=== PATIENT | female | born 1945 | race Caucasian/White ===

== ENCOUNTER → 2017-11-25 | Outpatient (CLI) | payer MEDICARE, OTHER | END | disposition home or self-care (01) | LOC: EKG 10:35 | DX: Z01.818 Encounter for other preprocedural examination (principal); R05 Cough | CPT/HCPCS: 71046 ==

== ENCOUNTER 2017-12-02 09:16 | Day surgery (SDC) | payer MEDICARE, OTHER ==
[~2017-12-02 09:16] MED LIST: LIDOCAINE 2% (SDV) 5 ML INJ
[2017-12-02 10:37] LABS: ANION GAP 13 (8-16); CARBON DIOXIDE 22 mmol/L (21-31); CHLORIDE 111 mmol/L (97-110); GLUCOSE 127 mg/dl (70-220)
[2017-12-02 10:42] LABS: BLOOD UREA NITROGEN 10 mg/dl (7-20); CREATININE 0.48 mg/dl (0.44-1.00); POTASSIUM 4.1 mmol/L (3.5-5.1); SODIUM 142 mmol/L (135-144)
[2017-12-02] MEDS ORDERED: FENTAnyl 50 MCG/ML VIAL (11:28)
[2017-12-02] MEDS ORDERED: PROPOFOL 100 ML (11:29)
[2017-12-02] MEDS ORDERED: HYDROmorphONE (0.2 MG/ML) 10ML SYG IV ×2 (11:30)
[2017-12-02] MEDS ORDERED: LABETALOL HCL 20MG INJ IV (11:30)
[2017-12-02] MEDS ORDERED: KETOROLAC 30 MG INJ IV (11:30)
[2017-12-02] MEDS ORDERED: OXYCODONE/ACETAMINOPHEN (5/325) TAB PO ×2 (11:30)
[2017-12-02] MEDS ORDERED: ONDANSETRON 4 MG INJ IV (11:30)
[2017-12-02] MEDS ORDERED: ALBUTEROL 0.083% (NEB) 2.5 MG/3 ML AMP HHN (11:30)
[2017-12-02] MEDS ORDERED: DIPHENHYDRAMINE 50 MG INJ IV (11:30)
[2017-12-02] MEDS ORDERED: FENTAnyl 50 MCG/ML VIAL IV ×2 (11:30)
[2017-12-02] MEDS ORDERED: MEPERIDINE 25 MG INJ IV (11:30)
[2017-12-02] MEDS ORDERED: hydrALAzine 20 MG INJ IV (11:30)
[2017-12-02] MEDS ORDERED: EPHEDrine SULFATE 50 MG/5 ML SYG IV (11:30)
== END 2017-12-02 13:45 | disposition home or self-care (01) ==
LOC: GIL 09:16 → SDS 09:16 → GIL 13:45
DX: K29.30 Chronic superficial gastritis without bleeding (principal); K26.9 Duodenal ulcer, unspecified as acute or chronic, without hemorrhage or perforation; I10 Essential (primary) hypertension; E78.5 Hyperlipidemia, unspecified
CPT/HCPCS: 43239; 71045; 71046; 80048; 88305; 88312; 88313; 93005

== ENCOUNTER 2018-01-01 14:38 | Inpatient (IN) | payer MEDICARE, OTHER ==
[~2018-01-01 14:38] MED LIST changes: +ETOMIDATE 20 MG INJ; -LIDOCAINE 2% (SDV) 5 ML INJ; +SUCCINYLCHOLINE CHLORIDE 100 MG/5 ML SYG IV
[2018-01-01] MEDS: CEFTRIAXONE 1 GM/50 ML (PMX) 50 ML IVPB (15:15)
[2018-01-01 15:23] LABS: ADD MAN DIFF? NO
[2018-01-01] MEDS: NORepinephrine 8MG/250 ML (PMX 250 ML IV (15:27)
[2018-01-01 15:31] LABS: BASOPHILS % 0.2 % (0.0-2.0); EOSINOPHILS % 0.3 % (0.0-7.0); HEMATOCRIT 28.9 % (37.0-47.0); HEMOGLOBIN 9.8 g/dl (12.0-16.0); LYMPHOCYTES % 13.3 % (15.0-51.0); MEAN CORPUSCULAR HEMOGLOBIN 30.1 pg (29.0-33.0); MEAN CORPUSCULAR HGB CONC 33.9 g/dl (32.0-37.0); MEAN CORPUSCULAR VOLUME 88.7 fl (82.0-101.0); MEAN PLATELET VOLUME 11.9 fl (7.4-10.4); MONOCYTE # 0.9 10^3/ul (0.3-0.9); MONOCYTES % 6.3 % (0.0-11.0); NEUTROPHIL # 11.7 10^3/ul (1.6-7.5); NEUTROPHILS % 79.3 % (39.0-77.0); PLATELET COUNT 248 10^3/UL (140-415); RED BLOOD COUNT 3.26 10^6/ul (4.20-5.40); RED CELL DISTRIBUTION WIDTH 14.7 % (11.5-14.5)
[2018-01-01 15:31] LABS: WHITE BLOOD COUNT 14.7 10^3/ul (4.8-10.8)
[2018-01-01] MEDS: TRANEXAMIC ACID IVPB (15:36)
[2018-01-01] MEDS: DEXTROSE 5% IVPB (15:36)
[2018-01-01] MEDS: PANTOPRAZOLE IV 80 MG in SOD CHLORIDE 0.9% 100 ML IV ×2 (15:38→22:16)
[2018-01-01] MEDS: SOD CHLORIDE 0.9% 1,000 ML IV ×2 (15:38→18:53)
[2018-01-01 15:44] LABS: ALANINE AMINOTRANSFERASE 45 IU/L (13-69); ALBUMIN 2.7 g/dl (3.3-4.9); ALKALINE PHOSPHATASE 123 IU/L (42-121); ANION GAP 14 (8-16); ASPARTATE AMINO TRANSFERASE 38 IU/L (15-46); BILIRUBIN,INDIRECT 0.7 mg/dl (0-1.1); BILIRUBIN,TOTAL 0.7 mg/dl (0.2-1.3); BLOOD UREA NITROGEN 17 mg/dl (7-20); CALCIUM 8.6 mg/dl (8.4-10.2); CARBON DIOXIDE 20 mmol/L (21-31); CHLORIDE 109 mmol/L (97-110); GLUCOSE 166 mg/dl (70-220); LIPASE 301 U/L (23-300); POTASSIUM 3.9 mmol/L (3.5-5.1); SODIUM 139 mmol/L (135-144); TOTAL PROTEIN 5.7 g/dl (6.1-8.1)
[2018-01-01] MEDS ORDERED: ONDANSETRON 4 MG INJ (15:45)
[2018-01-01 15:46] LABS: INR 1.26; PARTIAL THROMBOPLASTIN TIME 32.1 Sec (25.0-35.0); PT RATIO 1.3
[2018-01-01] MEDS: PANTOPRAZOLE IV 80 MG in SOD CHLORIDE 0.9% 100 ML IVPB (15:52)
[2018-01-01] MEDS: OCTREOTIDE 50 MCG in SOD CHLORIDE 0.9% 25 ML IVPB (15:53)
[2018-01-01 15:56] LABS: TROPONIN-I < 0.012 ng/ml (0.000-0.120)
[2018-01-01] MEDS: OCTREOTIDE 500 MCG in SOD CHLORIDE 0.9% 49 ML IV (16:00)
[2018-01-01] MEDS: ETOMIDATE 20 MG INJ IV (16:03)
[2018-01-01] MEDS: SUCCINYLCHOLINE CHLORIDE 100 MG/5 ML SYG IV (16:03)
[2018-01-01] MEDS ORDERED: LORAZEPAM 2 MG INJ (16:05)
[2018-01-01] MEDS: LORAZEPAM 2 MG INJ IV (16:05)
[2018-01-01] MEDS ORDERED: MIDAZOLAM 1 MG/ML 2 ML INJ (16:07)
[2018-01-01] MEDS ORDERED: MIDAZOLAM (DRIP) 50 mg/50 mL 50 ML IV (16:18)
[2018-01-01] MEDS ORDERED: PROPOFOL 100 ML (16:54)
[2018-01-01] MEDS ORDERED: PROPOFOL 100 ML IV (17:00)
[2018-01-01] MEDS ORDERED: PHENYLephrine 20MG IN 250 ML 0 ML (17:38)
[2018-01-01] MEDS ORDERED: PHENYLephrine 40 MG in DEXTROSE 5% 496 ML IV (18:00)
[2018-01-01] MEDS: PANTOPRAZOLE 40 MG INJ IV (18:53)
[2018-01-01] MEDS: PROPOFOL 100 ML IV (18:53)
[2018-01-01 19:43] LABS: ADD MAN DIFF? NO; BASOPHILS % 0.2 % (0.0-2.0); HEMATOCRIT 24.7 % (37.0-47.0); HEMOGLOBIN 8.3 g/dl (12.0-16.0); LYMPHOCYTES % 5.6 % (15.0-51.0); MEAN CORPUSCULAR HEMOGLOBIN 30.3 pg (29.0-33.0); MEAN CORPUSCULAR HGB CONC 33.6 g/dl (32.0-37.0); MEAN CORPUSCULAR VOLUME 90.1 fl (82.0-101.0); MONOCYTE # 1.3 10^3/ul (0.3-0.9); MONOCYTES % 6.8 % (0.0-11.0); NEUTROPHILS % 86.3 % (39.0-77.0); PLATELET COUNT 293 10^3/UL (140-415); RED BLOOD COUNT 2.74 10^6/ul (4.20-5.40); RED CELL DISTRIBUTION WIDTH 14.8 % (11.5-14.5)
[2018-01-01 19:43] LABS: WHITE BLOOD COUNT 18.5 10^3/ul (4.8-10.8)
[2018-01-01] MEDS: METOCLOPRAMIDE 10 MG INJ IV (19:55)
[2018-01-01 20:06] LABS: ANION GAP 15 (8-16); BLOOD UREA NITROGEN 17 mg/dl (7-20); CALCIUM 7.8 mg/dl (8.4-10.2); CARBON DIOXIDE 18 mmol/L (21-31); CHLORIDE 109 mmol/L (97-110); CREATININE 0.89 mg/dl (0.44-1.00); GLUCOSE 173 mg/dl (70-220); POTASSIUM 3.9 mmol/L (3.5-5.1); SODIUM 138 mmol/L (135-144)
[2018-01-01] MEDS: PHENYLephrine 40 MG in DEXTROSE 5% 496 ML IV (20:09)
[2018-01-01 20:11] LABS: AADO2 Arterial 390.7 mmHg (7.0-24.0); Allen Test ACCEPTAB; Arterial Base Excess -10.2 mmol/L (-3.0-3); Arterial Blood Gas Oxygen Sat 98.4 mmHG (95.0-100.0); Arterial COHb 0.3 % (0.0-3.0); Arterial Fraction of Oxyhgb 97.8 % (93.0-99.0); Arterial HCO3 14.5 mmol/L (22.0-26.0); Arterial MetHb 0.3 % (0.0-1.5); Arterial Total Hemglobin 9.5 g/dl (12.0-18.0); Arterial pCO2 27.9 mmhg (35-45); MODE VENT - AC; Site Right Radial
[2018-01-02 00:05] LABS: AHG CROSSMATCH 1 9
[2018-01-02] MEDS: PROPOFOL 100 ML IV ×3 (00:30→23:08)
[2018-01-02] MEDS: METOCLOPRAMIDE 10 MG INJ IV ×6 (00:32→20:50)
[2018-01-02 04:59] LABS: ADD MAN DIFF? NO
[2018-01-02 05:06] LABS: BASOPHILS % 0.1 % (0.0-2.0); HEMATOCRIT 29.6 % (37.0-47.0); HEMOGLOBIN 10.1 g/dl (12.0-16.0); LYMPHOCYTES # 2.8 10^3/ul (0.8-2.9); LYMPHOCYTES % 12.9 % (15.0-51.0); MEAN CORPUSCULAR HEMOGLOBIN 30.4 pg (29.0-33.0); MEAN CORPUSCULAR HGB CONC 34.1 g/dl (32.0-37.0); MEAN CORPUSCULAR VOLUME 89.2 fl (82.0-101.0); MEAN PLATELET VOLUME 11.5 fl (7.4-10.4); MONOCYTE # 1.5 10^3/ul (0.3-0.9); MONOCYTES % 6.6 % (0.0-11.0); NEUTROPHIL # 17.3 10^3/ul (1.6-7.5); NEUTROPHILS % 79.5 % (39.0-77.0); PLATELET COUNT 251 10^3/UL (140-415); RED BLOOD COUNT 3.32 10^6/ul (4.20-5.40); RED CELL DISTRIBUTION WIDTH 14.6 % (11.5-14.5)
[2018-01-02 05:06] LABS: WHITE BLOOD COUNT 21.8 10^3/ul (4.8-10.8)
[2018-01-02 05:39] LABS: ANION GAP 13 (8-16); BLOOD UREA NITROGEN 21 mg/dl (7-20); CALCIUM 7.7 mg/dl (8.4-10.2); CARBON DIOXIDE 17 mmol/L (21-31); CHLORIDE 112 mmol/L (97-110); CREATININE 1.41 mg/dl (0.44-1.00); GLUCOSE 185 mg/dl (70-220); POTASSIUM 4.4 mmol/L (3.5-5.1); SODIUM 138 mmol/L (135-144)
[2018-01-02] MEDS: PHENYLephrine 40 MG in DEXTROSE 5% 496 ML IV ×3 (06:17→21:56)
[2018-01-02 07:33] LABS: ADD UMIC YES; UR ASCORBIC ACID NEGATIVE (NEGATIVE); UR BACTERIA FEW /HPF (NONE SEEN); UR BILIRUBIN (Dip) NEGATIVE (NEGATIVE); UR BLOOD (Dip) 1+ mg/dL (NEGATIVE); UR CLARITY SLIGHTLY CLOUDY (CLEAR); UR COLOR YELLOW (YELLOW); UR GLUCOSE (Dip) 1+ mg/dL (NEGATIVE); UR KETONES (Dip) NEGATIVE (NEGATIVE); UR LEUKOCYTE ESTERASE (Dip) NEGATIVE Leu/ul (NEGATIVE); UR NITRITE (Dip) NEGATIVE (NEGATIVE); UR RBC 4 /HPF (0-5); UR SPECIFIC GRAVITY (Dip) 1.012 (1.003-1.030); UR SQUAMOUS EPITHELIAL CELL FEW /HPF (FEW); UR TOTAL PROTEIN (Dip) 2+ mg/dl (NEGATIVE); UR UROBILINOGEN (Dip) NEGATIVE (NEGATIVE); UR WBC 13 /HPF (0-5)
[2018-01-02 08:00] LABS: HEMOGLOBIN A1C 6.6 % (0-5.9)
[2018-01-02 08:25] LABS: AADO2 Arterial 173.7 mmHg (7.0-24.0); Allen Test ACCEPTAB; Arterial Base Excess -12.2 mmol/L (-3.0-3); Arterial Blood Gas Oxygen Sat 96.2 mmHG (95.0-100.0); Arterial COHb 0.3 % (0.0-3.0); Arterial Fraction of Oxyhgb 95.3 % (93.0-99.0); Arterial HCO3 10.9 mmol/L (22.0-26.0); Arterial MetHb 0.6 % (0.0-1.5); Arterial Total Hemglobin 10.5 g/dl (12.0-18.0); Arterial pCO2 18.7 mmhg (35-45); MODE VENT - AC; Site Right Radial
[2018-01-02] MEDS: PANTOPRAZOLE IV 80 MG in SOD CHLORIDE 0.9% 100 ML IV ×2 (08:30→18:37)
[2018-01-02] MEDS ORDERED: VANCOMYCIN IV PER PHARMACY XX (10:00)
[2018-01-02] MEDS: PIPER-TAZO 3.375 GM IV (PMX) 100 ML IVPB ×2 (10:51→18:22)
[2018-01-02] MEDS ORDERED: FENTAnyl (DRIP) 1000 mcg/100mL 100 ML IV (11:00)
[2018-01-02] MEDS: VANCOMYCIN 1.5 GM in SOD CHLORIDE 0.9% 250 ML IVPB (11:45)
[2018-01-02 11:52] LABS: AMYLASE 36 U/L (11-123)
[2018-01-02 11:52] LABS: LIPASE 413 U/L (23-300)
[2018-01-02 11:57] LABS: LACTIC ACID 7.4 mmol/L (0.5-2.0)
[2018-01-02] MEDS ORDERED: PHENYLephrine 20MG IN 250 ML 250 ML (12:09)
[2018-01-02] MEDS: SODIUM BICARBONATE (IV ADD) 150 MEQ in DEXTROSE 5%-0.45% NACL 1,000 ML IV (12:42)
[2018-01-02 14:12] LABS: ADD UMIC YES; UR ASCORBIC ACID NEGATIVE (NEGATIVE); UR BACTERIA FEW /HPF (NONE SEEN); UR BILIRUBIN (Dip) NEGATIVE (NEGATIVE); UR BLOOD (Dip) NEGATIVE (NEGATIVE); UR CLARITY CLOUDY (CLEAR); UR COLOR AMBER (YELLOW); UR GLUCOSE (Dip) NEGATIVE (NEGATIVE); UR KETONES (Dip) NEGATIVE (NEGATIVE); UR LEUKOCYTE ESTERASE (Dip) 1+ Leu/ul (NEGATIVE); UR NITRITE (Dip) NEGATIVE (NEGATIVE); UR RBC 6 /HPF (0-5); UR SPECIFIC GRAVITY (Dip) 1.021 (1.003-1.030); UR TOTAL PROTEIN (Dip) 2+ mg/dl (NEGATIVE); UR UROBILINOGEN (Dip) NEGATIVE (NEGATIVE); UR WBC 12 /HPF (0-5)
[2018-01-02] MEDS ORDERED: GLUCOSE GEL 15 GRAM TUBE BUCCAL (14:30)
[2018-01-02] MEDS ORDERED: GLUCOSE GEL 15 GRAM TUBE PO ×2 (14:30)
[2018-01-02] MEDS ORDERED: GLUCAGON 1 MG INJ IM (14:30)
[2018-01-02] MEDS ORDERED: DEXTROSE 50% 50 ML SYRINGE IV ×2 (14:30)
[2018-01-02] MEDS: SOD CHLORIDE 0.9% 1,000 ML IV (15:53)
[2018-01-02 15:59] LABS: AADO2 Arterial 189.8 mmHg (7.0-24.0); Allen Test ACCEPTAB; Arterial Base Excess -13.2 mmol/L (-3.0-3); Arterial Blood Gas Oxygen Sat 94.1 mmHG (95.0-100.0); Arterial COHb 0.3 % (0.0-3.0); Arterial Fraction of Oxyhgb 93.3 % (93.0-99.0); Arterial HCO3 9.9 mmol/L (22.0-26.0); Arterial MetHb 0.6 % (0.0-1.5); Arterial Total Hemglobin 10.1 g/dl (12.0-18.0); Arterial pCO2 17.3 mmhg (35-45); MODE VENT - AC; Site Right Radial
[2018-01-02] MEDS: INSULIN ASPART [NOVOLOG] 3 ML PEN SC ×2 (17:26→21:07)
[2018-01-02] MEDS: NA BICARBONATE 8.4% 50 ML SYG IV (17:47)
[2018-01-02 19:08] LABS: HEMATOCRIT 22.9 % (37.0-47.0); HEMOGLOBIN 7.9 g/dl (12.0-16.0)
[2018-01-02 19:28] LABS: ALANINE AMINOTRANSFERASE 137 IU/L (13-69); ALBUMIN 1.6 g/dl (3.3-4.9); ALBUMIN/GLOBULIN RATIO 0.84; ALKALINE PHOSPHATASE 63 IU/L (42-121); ANION GAP 18 (8-16); ASPARTATE AMINO TRANSFERASE 233 IU/L (15-46); BILIRUBIN,INDIRECT 1.1 mg/dl (0-1.1); BILIRUBIN,TOTAL 1.1 mg/dl (0.2-1.3); BLOOD UREA NITROGEN 25 mg/dl (7-20); CALCIUM 7.1 mg/dl (8.4-10.2); CARBON DIOXIDE 16 mmol/L (21-31); CHLORIDE 104 mmol/L (97-110); GLUCOSE 242 mg/dl (70-220); POTASSIUM 4.1 mmol/L (3.5-5.1); SODIUM 134 mmol/L (135-144); TOTAL PROTEIN 3.5 g/dl (6.1-8.1)
[2018-01-03] MEDS: ACETAMINOPHEN 1000MG/100ML IV 100 ML IVPB (00:40)
[2018-01-03] MEDS: METOCLOPRAMIDE 10 MG INJ IV ×2 (00:40→03:57)
[2018-01-03 00:46] LABS: HEMOGLOBIN 8.3 g/dl (12.0-16.0)
[2018-01-03] MEDS: INSULIN ASPART [NOVOLOG] 3 ML PEN SC (00:46)
[2018-01-03] MEDS: SODIUM BICARBONATE (IV ADD) 150 MEQ in DEXTROSE 5%-0.45% NACL 1,000 ML IV ×2 (01:57→06:21)
[2018-01-03] MEDS ORDERED: ACCU-CHEK XX (02:00)
[2018-01-03] MEDS: PIPER-TAZO 3.375 GM IV (PMX) 100 ML IVPB (02:01)
[2018-01-03] MEDS: SOD CHLORIDE 0.9% 1,000 ML IV ×2 (02:43→05:27)
[2018-01-03] MEDS: PHENYLephrine 40 MG in DEXTROSE 5% 496 ML IV ×2 (03:57→06:54)
[2018-01-03] MEDS: PANTOPRAZOLE IV 80 MG in SOD CHLORIDE 0.9% 100 ML IV (03:57)
[2018-01-03 05:00] LABS: WHITE BLOOD COUNT 23.3 10^3/ul (4.8-10.8)
[2018-01-03 05:00] LABS: ABNORMAL IP MESSAGE 1; HEMATOCRIT 15.3 % (37.0-47.0); MEAN CORPUSCULAR HEMOGLOBIN 30.8 pg (29.0-33.0); MEAN CORPUSCULAR HGB CONC 31.4 g/dl (32.0-37.0); MEAN CORPUSCULAR VOLUME 98.1 fl (82.0-101.0); MEAN PLATELET VOLUME 11.4 fl (7.4-10.4); NUCLEATED RED BLOOD CELLS% 3.1 /100WBC (0.0-0.0); PLATELET COUNT 162 10^3/UL (140-415); RED BLOOD COUNT 1.56 10^6/ul (4.20-5.40); RED CELL DISTRIBUTION WIDTH 15.9 % (11.5-14.5)
[2018-01-03] MEDS ORDERED: NA BICARBONATE 8.4% 50 ML SYG ×2 (05:03→05:04)
[2018-01-03] MEDS ORDERED: AMIODARONE 150MG/D5W BOLUS 100 ML (05:15)
[2018-01-03 05:26] LABS: ANION GAP 25 (8-16); BLOOD UREA NITROGEN 23 mg/dl (7-20); CALCIUM 6.5 mg/dl (8.4-10.2); CHLORIDE 104 mmol/L (97-110); CREATININE 2.61 mg/dl (0.44-1.00); GLUCOSE 343 mg/dl (70-220); MAGNESIUM 1.4 mg/dl (1.7-2.5); PHOSPHORUS 6.9 mg/dl (2.5-4.9); POTASSIUM 4.5 mmol/L (3.5-5.1); SODIUM 133 mmol/L (135-144)
[2018-01-03] MEDS: VASOPRESSIN 60 UNIT in DEXTROSE 5% 57 ML IV (05:29)
[2018-01-03] MEDS ORDERED: AMIODARONE 150MG/D5W BOLUS 100 ML IV (05:30)
[2018-01-03] MEDS: NA BICARBONATE 8.4% 50 ML SYG IV (05:32)
[2018-01-03 05:38] LABS: CARBON DIOXIDE 9 mmol/L (21-31)
[2018-01-03] MEDS ORDERED: LORAZEPAM 2 MG INJ (05:39)
[2018-01-03] MEDS: LORAZEPAM 2 MG INJ IV (05:45)
[2018-01-03] MEDS: AMIODARONE 150 MG INJ IV (05:45)
[2018-01-03] MEDS: DILTIAZEM 25 MG INJ IV (05:46)
[2018-01-03] MEDS ORDERED: MIDAZOLAM 1 MG/ML 2 ML INJ (05:59)
[2018-01-03 06:04] LABS: LACTIC ACID 16.5 mmol/L (0.5-2.0)
[2018-01-03] MEDS: MIDAZOLAM 1 MG/ML 2 ML INJ IV (06:05)
[2018-01-03 06:07] LABS: HEMOGLOBIN 4.8 g/dl (12.0-16.0)
[2018-01-03 06:08] LABS: ADD MAN DIFF? YES; POSITIVE DIFF @See below
[2018-01-03] MEDS: EPINEPHrine 4 MG in SOD CHLORIDE 0.9% 246 ML IV (06:15)
[2018-01-03] MEDS: MIDAZOLAM (DRIP) 50 mg/50 mL 50 ML IV (06:15)
[2018-01-03] MEDS ORDERED: AMIODARONE 150 MG INJ (07:00)
[2018-01-03] MEDS ORDERED: NORepinephrine 32 MG in DEXTROSE 5% 218 ML IV (07:00)
[2018-01-03] MEDS ORDERED: PHENYLephrine 160 MG in DEXTROSE 5% 484 ML IV (07:00)
[2018-01-03] MEDS ORDERED: morphine 1 MG/ML 30 ML (PCA) (07:37)
[2018-01-03] MEDS: morphine 1 MG/ML 30 ML (PCA) IV (07:41)
[2018-01-03 10:37] LABS: ANISOCYTOSIS 1+ (0-0); BAND NEUTROPHILS #M 7.4 10^3/ul (0.0-0.6); BAND NEUTROPHILS % (M) 32 % (0-4); BURR CELLS 3+ (0-0); EOSINOPHILS % (M) 1 % (0-7); GIANT THROMBO% (M) 2 % (0-0); LYMPHOCYTES #M 3.4 10^3/ul (0.8-2.9); LYMPHOCYTES % (M) 15 % (15-51); METAMYELOCYTES #M 0.2 10^3/ul (0.0-0.0); METAMYELOCYTES %M 1 % (0-0); MONOCYTE #M 1.1 10^3/ul (0.3-0.9); MONOCYTES % (M) 5 % (0-11); OVALOCYTES 1+ (0-0); PLATELET ESTIMATE NORMAL; PLATELET MORPHOLOGY COMMENT @See below; POIKILOCYTOSIS 3+ (0-0); POLYCHROMASIA 2+ (0-0); SEG NEUT #M 12.4 10^3/ul (1.6-7.5); SEGMENTED NEUTROPHILS (M) % 46 % (39-77); SMUDGE%M 3 % (0-0)
[2018-01-04] MEDS ORDERED: VANCOMYCIN 1 GM 250 ML IVPB (11:00)
== END 2018-01-03 08:41 | disposition expired | DRG 871 ==
LOC: E/R 14:38 → ICU 15:42
PROC: 0BH17EZ Insertion of Endotracheal Airway into Trachea, Via Natural or Artificial Opening (ICD-10-PCS; principal; 2018-01-01 16:25)
PROC: 5A1945Z Respiratory Ventilation, 24-96 Consecutive Hours (ICD-10-PCS; 2018-01-01 16:25)
PROC: 0DJ08ZZ Inspection of Upper Intestinal Tract, Via Natural or Artificial Opening Endoscopic (ICD-10-PCS; 2018-01-01 16:25)
PROC: 30233N1 Transfusion of Nonautologous Red Blood Cells into Peripheral Vein, Percutaneous Approach (ICD-10-PCS; 2018-01-01 16:25)
DX: A41.9 Sepsis, unspecified organism (principal); J96.01 Acute respiratory failure with hypoxia; N17.0 Acute kidney failure with tubular necrosis; G92 Toxic encephalopathy; R65.21 Severe sepsis with septic shock; C24.9 Malignant neoplasm of biliary tract, unspecified; K92.0 Hematemesis; D62 Acute posthemorrhagic anemia; E87.2 Acidosis; E87.1 Hypo-osmolality and hyponatremia; I95.1 Orthostatic hypotension; I10 Essential (primary) hypertension; E78.5 Hyperlipidemia, unspecified; I25.10 Atherosclerotic heart disease of native coronary artery without angina pectoris; R57.1 Hypovolemic shock; E83.42 Hypomagnesemia; E83.39 Other disorders of phosphorus metabolism
CPT/HCPCS: 31500; 36415; 36430; 36600; 71045; 76775; 80048; 80053; 81001; 82150; 82803; 82962; 83036; 83605; 83690; 83735; 84100; 84484; 85014; 85018; 85025; 85610; 85730; 86850; 86870; 86900; 86901; 86920; 87040; 87081; 87086; 93005; 94002; 94003; 94770; 96365; 96368; 96375; 96376; 99291-25